=== PATIENT | female | born 1990 | race Caucasian/White ===

== ENCOUNTER 2017-08-03 01:50 | Emergency (ER) | payer MEDICAID ==
[2017-08-03 02:03] VITALS: TEMP 97.3
[2017-08-03 02:13] LABS: % IMMATURE GRANULYOCYTES 0.5 % (0.0-1.1); ABSOLUTE IMMATURE GRANULOCYTES 0.08 10^3/uL (0.00-0.10); ADD DIFF? NO; ADD MORPH? NO; ADD SCAN? NO; ATYPICAL LYMPHOCYTE FLAG 0 (0-99); FRAGMENT RBC FLAG 0 (0-99); HEMATOCRIT 42.9 % (38.0-47.0); HEMOGLOBIN 14.9 g/dL (12.6-16.3); LEFT SHIFT FLG 0 (0-99); LIPEMIA HEMOLYSIS FLAG 90 (0-99); MEAN CELL HEMOGLOBIN 29.8 pg (27.9-34.1); MEAN CELL HEMOGLOBIN CONCENTR. 34.7 g/dL (32.4-36.7); MEAN CELL VOLUME 85.8 fL (81.5-99.8); MEAN PLATELET VOLUME 10.5 fL (8.7-11.7); PLATELET CLUMPS FLAG 0 (0-99); PLATELET COUNT 383 10^3/uL (150-400); RED CELL DISTRIBUTION WIDTH 12.7 % (11.5-15.2)
[2017-08-03] MEDS ORDERED: HYDROmorphONE/DILAUDID 1 MG/ML INJ IVP ONE ×3 (02:13→03:04)
[2017-08-03] MEDS ORDERED: ONDANSETRON 4 MG/2 ML VIAL IVP ONE ×3 (02:13→04:48)
[2017-08-03] MEDS ORDERED: NS 1,000 ML IV ONE (02:21)
[2017-08-03 02:26] LABS: ALANINE AMINOTRANSFERASE 43 IU/L (9-52); ALBUMIN 4.4 g/dL (3.5-5.0); ALKALINE PHOSPHATASE 60 IU/L (38-126); ANION GAP 15 mEq/L (8-16); ASPARTATE AMINOTRANSFERASE 19 IU/L (14-46); BILIRUBIN,TOTAL 0.7 mg/dL (0.1-1.4); BILIRUBIN-CONJUGATED 0.4 mg/dL (0.0-0.5); BILIRUBIN-UNCONJUGATED 0.3 mg/dL (0.0-1.1); CARBON DIOXIDE 20 mEq/l (22-31); CHLORIDE 109 mEq/L (97-110); CREATININE 0.9 mg/dL (0.6-1.0); GLOMERULAR FILTRATION RATE > 60; GLUCOSE 108 mg/dL (70-100); POTASSIUM 3.8 mEq/L (3.5-5.2); SODIUM 144 mEq/L (134-144); TOTAL PROTEIN 7.5 g/dL (6.3-8.2)
--- NOTE | 2017-08-03 02:39 | EDPHY ---
H & P Stated Complaint: rlq abd pain x 1 hour, vomiting Time Seen by Provider: 08/03/17 02:07 HPI/ROS: This patient complains of right lower quadrant abdominal pain that awakened her from sleep. She felt well when she went to bed and reports the pain intensity is 10/10. She reports that does radiate to the back to some degree. She feels does worsened slightly with movement and she has associated nausea and vomiting. She is accompanied by her mother and sister who drove her here by private vehicle for further evaluation. She notes no other exacerbating or alleviating factors. She is unable specify the nature of the pain at this time. No analgesics were taken prior to arrival. ROS: Constitutional: No fevers or chills HEENT: No complaints Pulmonary: No cough shortness of breath Cardiovascular: No chest pain GI: No hematemesis. Normal BMs recently. : Last menstrual period-current. She has not noticed hematuria. No dysuria. Musculoskeletal: Negative Integumentary: No skin rash or other complaints Complete review of symptoms is otherwise negative Source: Patient Exam Limitations: No limitations - Personal History LMP (Females 10-55): Now Current Tetanus/Diphtheria Vaccine: Unsure Current Tetanus Diphtheria and Acellular Pertussis (TDAP): Unsure - Medical/Surgical History PMH: Appendicitis Ectopic Ureteral stone Hx Asthma: No Hx Chronic Respiratory Disease: No Hx Diabetes: No Hx Cardiac Disease: No Hx Renal Disease: No Hx Cirrhosis: No Hx Alcoholism: No Hx HIV/AIDS: No Hx Splenectomy or Spleen Trauma: No Other PMH: depression - Family History Significant Family History: No pertinent family hx - Social History Smoking Status: Former smoker Alcohol Use: None Drug Use: None - Physical Exam Exam: General Appearance: Alert, some distress due to pain. Patient is moving slowly trying to find a better position in the bed. She is moaning in pain. Eyes: Pupils equal and round no pallor or injection. ENT, Mouth: Mucous membranes moist. Respiratory: There are no retractions, lungs are clear to auscultation. Cardiovascular: Regular rate and rhythm. Gastrointestinal: Hypoactive bowel sounds, positive right lower quadrant tenderness - moderate. Back: Positive right CVA tenderness Neurological: GCS 15 with no focal deficits. Skin: Warm and dry, no rashes. Musculoskeletal: Neck is supple nontender. Extremities are symmetrical, full range of motion. Psychiatric: Mood and affect normal DIFFERENTIAL DIAGNOSIS: After history and physical exam differential diagnosis was considered for ureteral stone, bowel obstruction, ectopic , pyelonephritis, perforated viscus Constitutional: Initial Vital Signs Temperature (C) 36.3 C 08/03/17 01:58 Heart Rate 64 08/03/17 01:58 Respiratory Rate 18 08/03/17 01:58 Blood Pressure 132/101 H 08/03/17 01:58 O2 Sat (%) 94 08/03/17 01:58 O2 Delivery Mode Room Air Allergies/Adverse Reactions: No Known Allergies Allergy (Verified 02/16/16 13:08) Home Medications: Medication Instructions Recorded Quetiapine Fumarate [Seroquel Xr] 200 mg PO HS 12/12/15 Ibuprofen [Motrin (*)] 600 mg PO Q6 PRN #30 tab 08/03/17 Ondansetron Odt [Zofran Odt] 4 - 8 mg PO Q4PRN PRN #4 tab 08/03/17 Tamsulosin HCl [Flomax 0.4 MG (*)] 0.4 mg PO DAILY #10 cap 08/03/17 oxyCODONE/APAP 5/325 [Percocet 1 - 2 tab PO Q4-6PRN PRN #20 tab 08/03/17 5/325 (*)] Medical Decision Making - Diagnostics Imaging Results: CT abdomen pelvis noncontrast-proximal right ureteral stone with mild hydronephrosis 4 mm x 2.4 mm x [address] Mcguire-radiologist via phone who officially read the film. Imaging: Discussed imaging studies w/ welfare investigator Radiologist ED Course/Re-evaluation: IV, 1 mg Dilaudid, 4 mg Zofran Normal saline bolus Toradol IV 1 further 0.5 mg IV Dilaudid Repeat Zofran 4 mg IV x1 with patient's pain resolved in 2 to 3/10 and nausea resolved. She feels significantly relief. A personally reviewed the CT imaging and also spoke with Dr. Mcguire about his official read-proximal ureteral stone. I counseled patient regarding this. Given 4 mm with I think this patient will pass the stone. I counseled regarding this. She will go home with Zofran, filter analgesics and follow up with urologist if she is not improving with treatment plan. - Data Points Laboratory Results: Laboratory Results 08/03/17 02:05 08/03/17 02:05 08/03/17 08/03/17 08/03/17 03:05 02:05 02:05 WBC RBC Hgb Hct MCV MCH MCHC RDW Plt Count MPV Neut % (Auto) Lymph % (Auto) [place] % (Auto) Eos % (Auto) Baso % (Auto) Nucleat RBC Rel Count Absolute Neuts (auto) Absolute Lymphs (auto) Absolute Monos (auto) Absolute Eos (auto) Absolute Basos (auto) Absolute Nucleated RBC Immature Gran % Immature Gran # Sodium 144 mEq/L mEq/L (134-144) Potassium 3.8 mEq/L mEq/L (3.5-5.2) Chloride 109 mEq/L mEq/L (97-110) Carbon Dioxide 20 mEq/l L mEq/l (22-31) Anion Gap 15 mEq/L mEq/L (8-16) BUN 13 mg/dL mg/dL (7-23) Creatinine 0.9 mg/dL mg/dL (0.6-1.0) Estimated GFR > 60 Glucose 108 mg/dL H mg/dL (70-100) Calcium 10.0 mg/dL mg/dL (8.5-10.4) Total Bilirubin 0.7 mg/dL mg/dL (0.1-1.4) Conjugated Bilirubin 0.4 mg/dL mg/dL (0.0-0.5) Unconjugated Bilirubin 0.3 mg/dL mg/dL (0.0-1.1) AST 19 IU/L IU/L (14-46) ALT 43 IU/L IU/L (9-52) Alkaline Phosphatase 60 IU/L IU/L (38-126) Total Protein 7.5 g/dL g/dL (6.3-8.2) Albumin 4.4 g/dL g/dL (3.5-5.0) Lipase 96 IU/L IU/L (23-300) Beta HCG, Qual NEGATIVE Urine Color YELLOW Urine Appearance CLEAR Urine pH 7.0 (5.0-7.5) Ur Specific [place] 1.020 (1.002-1.030) Urine Protein 1+ H (NEGATIVE) Urine Ketones 1+ H (NEGATIVE) Urine Blood 3+ H (NEGATIVE) Urine Nitrate NEGATIVE (NEGATIVE) Urine Bilirubin NEGATIVE (NEGATIVE) Urine Urobilinogen 0.2 EU EU (0.2-1.0) Ur Leukocyte Esterase NEGATIVE (NEGATIVE) Urine RBC 50-182 /hpf H /hpf (0-3) Urine WBC 0-1 /hpf /hpf (0-3) Ur Epithelial Cells 2+ /lpf H /lpf (NONE-1+) Urine Bacteria TRACE /hpf H /hpf (NONE SEEN) Urine Mucus 1+ /lpf /lpf (NONE-1+) Urine Glucose NEGATIVE (NEGATIVE) 08/03/17 02:05 WBC 15.10 10^3/uL H 10^3/uL (3.80-9.50) RBC 5.00 10^6/uL 10^6/uL (4.18-5.33) Hgb 14.9 g/dL g/dL (12.6-16.3) Hct 42.9 % % (38.0-47.0) MCV 85.8 fL fL (81.5-99.8) MCH 29.8 pg pg (27.9-34.1) MCHC 34.7 g/dL g/dL (32.4-36.7) RDW 12.7 % % (11.5-15.2) Plt Count 383 10^3/uL 10^3/uL (150-400) MPV 10.5 fL fL (8.7-11.7) Neut % (Auto) 58.4 % % (39.3-74.2) Lymph % (Auto) 31.5 % % (15.0-45.0) [place] % (Auto) 7.7 % % (4.5-13.0) Eos % (Auto) 1.4 % % (0.6-7.6) Baso % (Auto) 0.5 % % (0.3-1.7) Nucleat RBC Rel Count 0.0 % % (0.0-0.2) Absolute Neuts (auto) 8.81 10^3/uL H 10^3/uL (1.70-6.50) Absolute Lymphs (auto) 4.76 10^3/uL H 10^3/uL (1.00-3.00) Absolute Monos (auto) 1.16 10^3/uL H 10^3/uL (0.30-0.80) Absolute Eos (auto) 0.21 10^3/uL 10^3/uL (0.03-0.40) Absolute Basos (auto) 0.08 10^3/uL 10^3/uL (0.02-0.10) Absolute Nucleated RBC 0.00 10^3/uL 10^3/uL (0-0.01) Immature Gran % 0.5 % % (0.0-1.1) Immature Gran # 0.08 10^3/uL 10^3/uL (0.00-0.10) Sodium Potassium Chloride Carbon Dioxide Anion Gap BUN Creatinine Estimated GFR Glucose Calcium Total Bilirubin Conjugated Bilirubin Unconjugated Bilirubin AST ALT Alkaline Phosphatase Total Protein Albumin Lipase Beta HCG, Qual Urine Color Urine Appearance Urine pH Ur Specific [place] Urine Protein Urine Ketones Urine Blood Urine Nitrate Urine Bilirubin Urine Urobilinogen Ur Leukocyte Esterase Urine RBC Urine WBC Ur Epithelial Cells Urine Bacteria Urine Mucus Urine Glucose Medications Given: Discontinued Medications Hydromorphone HCl (Dilaudid) 1 mg IVP EDNOW ONE Stop: 08/03/17 02:14 Last Admin: 08/03/17 02:19 Dose: 1 mg Hydromorphone HCl (Dilaudid) 0.5 mg IVP EDNOW ONE Stop: 08/03/17 03:05 Last Admin: 08/03/17 03:09 Dose: 0.5 mg Sodium Chloride (Ns) 1,000 mls @ 0 mls/hr IV ONCE ONE; Wide Open PRN Reason: Protocol Stop: 08/03/17 02:22 Last Admin: 08/03/17 02:23 Dose: 1,000 mls Ketorolac Tromethamine (Toradol) 30 mg IVP EDNOW ONE Stop: 08/03/17 02:41 Last Admin: 08/03/17 02:43 Dose: 30 mg Ondansetron HCl (Zofran) 4 mg IVP EDNOW ONE Stop: 08/03/17 02:14 Last Admin: 08/03/17 02:18 Dose: 4 mg Ondansetron HCl (Zofran) 4 mg IVP EDNOW ONE Stop: 08/03/17 03:13 Last Admin: 08/03/17 03:21 Dose: 4 mg Ondansetron HCl (Zofran Odt 4 Mg Prepack#2) 1 btl TAKEHOME EDNOW ONE Stop: 08/03/17 04:22 Last Admin: 08/03/17 04:33 Dose: 1 btl Ondansetron HCl (Zofran) 4 mg IVP EDNOW ONE Stop: 08/03/17 04:49 Last Admin: 08/03/17 04:49 Dose: 4 mg Oxycodone/Acetaminophen (Percocet 5/325mg Prepack#4) 1 btl TAKEHOME EDNOW ONE Stop: 08/03/17 04:22 Last Admin: 08/03/17 04:27 Dose: 1 btl Oxycodone/Acetaminophen (Percocet 5/325) 1 tab PO EDNOW ONE Stop: 08/03/17 04:49 Last Admin: 08/03/17 04:50 Dose: 1 tab Tamsulosin HCl (Flomax) 0.4 mg PO EDNOW ONE Stop: 08/03/17 04:15 Last Admin: 08/03/17 04:27 Dose: 0.4 mg Departure - Departure Disposition: Home, Routine, Self-Care Clinical Impression: Ureteral stone with hydronephrosis Vomiting Qualifiers: Vomiting type: unspecified Vomiting Intractability: non-intractable Nausea presence: with nausea Qualified Code(s): R11.2 - Nausea with vomiting, unspecified Condition: Good Instructions: Oxycodone/Acetaminophen (By mouth), Ondansetron (By mouth), Ureteral Stones (ED) Additional Instructions: Diagnoses: 1. Ureteral stone 2. Vomiting Plan: Drink plenty fluids Zofran for nausea or vomiting - 1-2 tabs under tongue per 6 hrs if needed for nausea or vomiting Flomax 1 daily to help pass the stone Ibuprofen-600 mg for 6 hours as needed for pain Tylenol and/or Percocet -1 to 2 per 4 hours if needed for pain despite ibuprofen in addition if needed. No driving, alcohol or come Percocet Filter your urine to document passage of the stone Follow up with urologist-number provide of below for any ongoing symptoms despite treatment plan. Return to the emergency department for worsening despite the treatment plan Referrals: Patient,NotPresent [Primary Care Provider] - As per Instructions Emilia Wei MD [Medical Doctor] - As per Instructions Stand Alone Forms: Work Excuse Prescriptions: Ibuprofen [Motrin (*)] 600 mg PO Q6 PRN #30 tab PRN Reason: Pain Ondansetron Odt [Zofran Odt] 4 - 8 mg PO Q4PRN PRN #4 tab PRN Reason: Vomiting oxyCODONE/APAP 5/325 [Percocet 5/325 (*)] 1 - 2 tab PO Q4-6PRN PRN #20 tab PRN Reason: Pain Tamsulosin HCl [Flomax 0.4 MG (*)] 0.4 mg PO DAILY #10 cap
[2017-08-03] MEDS ORDERED: KETOROLAC 30 MG/1 ML SDV IVP ONE (02:40)
[2017-08-03 03:15] LABS: COLOR YELLOW; LEUKOCYTE ESTERASE,URINE NEGATIVE (NEGATIVE); NITRITE,URINE NEGATIVE (NEGATIVE)
[2017-08-03 03:25] LABS: BACTERIA TRACE /hpf (NONE SEEN); MUCUS 1+ /lpf (NONE-1+); RBC,URINE 50-182 /hpf (0-3); WBC,URINE 0-1 /hpf (0-3)
[2017-08-03] MEDS ORDERED: TAMSULOSIN HCL 0.4 MG CAP PO ONE (04:14)
[2017-08-03] MEDS ORDERED: OXYCODONE/APAP 5/325MG PREPACK#4 BTL TAKEHOME ONE (04:21)
[2017-08-03] MEDS ORDERED: ONDANSETRON 4MG PREPACK#2 BTL TAKEHOME ONE (04:21)
[2017-08-03] MEDS ORDERED: OXYCODONE/APAP 5/325 TAB ONE (04:40)
[2017-08-03] MEDS ORDERED: ONDANSETRON 4 MG/2 ML VIAL ONE (04:41)
[2017-08-03] MEDS ORDERED: OXYCODONE/APAP 5/325 TAB PO ONE ×2 (04:48)
[2017-08-03 05:10] VITALS: BP 126/79; PULSE 58; RESP 18; O2SAT 99
== END 2017-08-03 05:23 | disposition home or self-care (01) ==
LOC: CED 01:50
DX: N13.2 Hydronephrosis with renal and ureteral calculous obstruction (principal); E86.9 Volume depletion, unspecified; Z87.891 Personal history of nicotine dependence
CPT/HCPCS: 74176-PO; 80048-PO; 80076-PO; 81003-PO; 81015-PO; 83690-PO; 84703-PO; 85025-PO; 96374; J1170; J1885; J2405